=== PATIENT | female | born 2000 | race Caucasian/White ===

== ENCOUNTER 2021-01-30 02:45 | Emergency (ER) | payer MEDICAID, SELFPAY ==
[2021-01-30] MEDS ORDERED: Acetaminophen 325 MG TAB ONE (03:08)
[2021-01-30 03:22] LABS: Bilirubin Negative (Negative); Blood, Urine Moderate (Negative); Clarity Clear (Clear); Glucose, Urine (Dipstick) Negative (Negative); Ketone, Urine Negative (Negative); Leukocyte Negative (Negative); Nitrite Negative (Negative); Protein, Urine (Dipstick) Negative (Neg-Trace); Urobilinogen 0.2 mg/dL (Less than 2); pH, Urine 5.5 (5.0-9.0)
[2021-01-30 03:30] LABS: Bacteria/HPF None Seen HPF (None Seen); Squamous Epithelial 0-3 HPF (0-3); WBC/HPF 0-3 HPF (0-3)
[2021-01-30 15:32] LABS: SARS-CoV-2 PCR by NAA Not Detected (NotDetected)
== END 2021-01-30 03:44 | disposition home or self-care (01) ==
LOC: NAV ERS 02:45
DX: B34.9 Viral infection, unspecified (principal); H92.03 Otalgia, bilateral; F17.210 Nicotine dependence, cigarettes, uncomplicated; M54.9 Dorsalgia, unspecified; Z20.822 Contact with and (suspected) exposure to COVID-19
CPT/HCPCS: 81003; 81015; 87081; 87430; 99283; U0003; U0005